=== PATIENT | female | born 1950 | race Two or more races ===

== ENCOUNTER → 2016-07-11 | Outpatient (CLI) | payer OTHER | END | disposition home or self-care (01) | LOC: CT 08:23 | PROVIDERS: ATTEND Urology | DX: K57.90 Diverticulosis of intestine, part unspecified, without perforation or abscess without bleeding (principal); M41.86 Other forms of scoliosis, lumbar region; M47.816 Spondylosis without myelopathy or radiculopathy, lumbar region | CPT/HCPCS: 74176 ==

== ENCOUNTER 2017-02-12 22:28 | Emergency (ER) | payer OTHER ==
[~2017-02-12] VITALS: Ht 160 cm; Wt 73.0 kg
[2017-02-12] MEDS ORDERED: AMLO10TA80 PO (22:46)
[2017-02-12] MEDS ORDERED: METO-385 PO (22:46)
[2017-02-12] MEDS ORDERED: SODIUM CHLORIDE 0.9% 1,000 ML IV ONE (23:20)
[2017-02-12 23:56] LABS: BASOPHILS % 0.7 % (0.0-2.0); EOSINOPHILS % 1.9 % (0.0-5.0); HEMATOCRIT. 41.5 % (36.0-48.0); HEMOGLOBIN. 14.1 g/dL (12.0-16.0); LYMPHOCYTES % 25.4 % (20.0-50.0); MEAN CORPUSCULAR VOLUME 85.4 fL (81.0-99.0); MEAN PLATELET VOLUME 8.7 fl (7.4-10.4); MONOCYTES % 9.7 % (2.0-8.0); NEUTROPHILS % 62.3 % (40.0-76.0); PLATELET 233 x1000/uL (130-400); RED BLOOD CELL COUNT 4.85 mill/uL (4.2-5.4); RED CELL DISTRIBUTION WIDTH 14.2 % (11.6-14.6)
[2017-02-13 00:04] LABS: CARBON DIOXIDE 27 mEq/L (21-32); CHLORIDE 108 mEq/L (98-107); TROPONIN I 0.02 ng/mL (0.00-0.04)
[2017-02-13] MEDS ORDERED: IOHEXOL-350 100 ML BOTTLE ONE (02:04)
[2017-02-13 03:45] VITALS: BP 126/78
== END 2017-02-13 03:50 | disposition home or self-care (01) ==
LOC: ER 22:28
DX: R07.9 Chest pain, unspecified (principal); M54.9 Dorsalgia, unspecified; I10 Essential (primary) hypertension
CPT/HCPCS: 36415; 71010; 71275; 80053; 83690; 84484; 85025; 93005; 96360; 96361; 99285; J7030; Q9967; Z7610

== ENCOUNTER 2020-06-29 16:03 | Emergency (ER) | payer OTHER ==
[~2020-06-29] VITALS: Ht 157.5 cm; Wt 77.0 kg
[~2020-06-29 16:03] MED LIST: AMLO10TA80 PO; METO-385 PO
[2020-06-29] MEDS ORDERED: VANCOMYCIN 1 G PREMIX 200 ML IV SCH (16:30)
[2020-06-29] MEDS ORDERED: ACETAMINOPHEN 325MG TABLET PO ONE (16:45)
[2020-06-29] MEDS ORDERED: LIDOCAINE HCL 1% 20ML VIAL (Pyxis) INJ INFIL ONE (17:00)
[2020-06-29] MEDS ORDERED: T3 PO (19:05)
[2020-06-29] MEDS ORDERED: ACETAMINOPHEN WITH CODEINE 300/30MG TABLET PO ONE (19:45)
[2020-06-29 20:30] VITALS: BP 120/65
== END 2020-06-29 20:52 | disposition home or self-care (01) ==
LOC: ER 16:03
DX: S82.851A Displaced trimalleolar fracture of right lower leg, initial encounter for closed fracture (principal); I48.91 Unspecified atrial fibrillation; I10 Essential (primary) hypertension; R01.1 Cardiac murmur, unspecified; Z79.01 Long term (current) use of anticoagulants; Z90.710 Acquired absence of both cervix and uterus; Z88.6 Allergy status to analgesic agent; Z88.5 Allergy status to narcotic agent; W11.XXXA Fall on and from ladder, initial encounter; Y93.89 Activity, other specified; Y92.018 Other place in single-family (private) house as the place of occurrence of the external cause
CPT/HCPCS: 27818; 70450; 73600; 73610; 99284; J3490